=== PATIENT | male | born 1970 ===

== ENCOUNTER 2019-12-11 08:04 | Outpatient (CLI) | payer BC ==
--- NOTE | 2019-12-11 08:41 | CT ---
CT Stone Protocol 12/11/2019 12:00 AM HISTORY: Hematuria. COMPARISON: None. Technique: Multiple contiguous axial CT images are obtained through the abdomen and pelvis without IV contrast. Coronal reformats are provided. FINDINGS: This examination is limited for the evaluation of solid organs and vascular structures due to the lac k of intravenous contrast. Lower Chest: Minimal atelectasis in the lingula. Abdomen: Liver: Grossly normal non-enhanced CT appearance. Gallbladder: Within normal limits for CT imaging. Pancreas: Grossly normal nonenhanced CT appearance. Spleen: Grossly normal nonenhanced CT appearance. Adrenals: Small 11 mm left adrenal nodule is present which does demonstrate attenuation coefficient m ost compatible with an adrenal adenoma. Right adrenal gland demonstrates a grossly normal nonenhanced CT appearance Kidneys: Mild nonspecific caliectasis on the right. No renal calculus is seen bilaterally. There is q uestion of a subcentimeter too small to characterize hypodense lesion in the inferior pole left kidney. Ureters: No ureteral calculus is seen.. Pelvis: Urinary bladder: Decompressed but otherwise grossly within normal limits. Reproductive Organs: No pelvic masses. Lymph Nodes: No enlarged lymph nodes. Bowel: There is a tubular shaped fat density structure seen in a loop of small bowel in the right asp ect of the pelvis. Multiple adjacent loops of unopacified small bowel loop are also seen. This could be related to ingested material within the small bowel. A lipoma involving the small bowel is a possibility as well. This has a more tubular configuration and measures approximately 1.6 cm. There is no evidence of a bowel obstruction, and the loops of small bowel are normal in caliber. Smal l amount of retained fecal material is seen throughout the colon. Appendix: Not definitively visualized on this exam, but there are no secondary signs to suggest appen dicitis. Peritoneum: No free fluid, free air, or fluid collection. Retroperitoneum: within normal limits. Vessels: Vascular calcifications are seen in the abdominal aorta and involving the iliac arteries.. Abdominal Wall: There are fat-containing bilateral inguinal canals. Small fat-containing umbilical he rnia is also seen. Bones: No suspicious lytic or sclerotic osseous lesions are identified. IMPRESSION: 1. Mild nonspecific right caliectasis. No renal or ureteral calculi are seen bilaterally. 2. Left adrenal adenoma.
== END 2019-12-11 08:05 | disposition home or self-care (01) ==
LOC: SCSCT 08:04
PROVIDERS: ATTEND Family Medicine
DX: R31.9 Hematuria, unspecified (principal); N28.89 Other specified disorders of kidney and ureter; D35.02 Benign neoplasm of left adrenal gland
CPT/HCPCS: 74176